=== PATIENT | female | born 1940 | race Caucasian/White ===

== ENCOUNTER 2018-04-29 15:03 | Emergency (ER) | payer MEDICARE ==
[2018-04-29] MEDS ORDERED: Amoxicillin/Potassium Clav 875 MG TAB ONE (15:24)
[2018-04-29] MEDS ORDERED: cefTRIAXone\\ROCEPHIN 1 GM VIAL ONE (15:24)
[2018-04-29] MEDS ORDERED: Adacel (T-DAP) 0.5 ML VIAL ONE (15:24)
== END 2018-04-29 15:55 | disposition home or self-care (01) ==
LOC: MADERS 15:03
DX: S61.451A Open bite of right hand, initial encounter (principal); I10 Essential (primary) hypertension; K21.9 Gastro-esophageal reflux disease without esophagitis; J44.9 Chronic obstructive pulmonary disease, unspecified; F32.9 Major depressive disorder, single episode, unspecified; E03.9 Hypothyroidism, unspecified; Z87.891 Personal history of nicotine dependence; W55.01XA Bitten by cat, initial encounter
CPT/HCPCS: 90471; 90715; 96372; J0696

== ENCOUNTER 2018-05-05 13:18 | Emergency (ER) | payer MEDICARE ==
[2018-05-05 14:33] LABS: #Basophils 0.1 thou/uL (0.0-0.2); #Eosinphils 0.6 thou/uL (0.0-0.7); #Lymphocytes 1.7 thou/uL (1.20-3.40); #Monocytes 0.9 thou/uL (0.11-0.59); #Neutrophils 9.3 thou/uL (1.40-6.50); %Eosinophils 4.6 % (0.0-10.0); %Lymphocytes 13.6 % (21.0-51.0); %Neutrophils 73.8 % (42.0-75.0); Hemoglobin 12.6 g/dL (12.0-16.0); Mean Corpuscular Hemoglobin 29.8 pg (27.0-31.0); Mean Corpuscular Volume 90.1 fL (78.0-98.0); Mean Platelet Volume 6.7 fL (7.4-10.4); Platelet Count 328 thou/uL (130-400); RBC Distribution Width 12.2 % (11.5-14.5); Red Blood Cell (RBC) Count 4.24 mill/uL (4.20-5.40); White Blood Cell (WBC) Count 12.6 thou/uL (4.8-10.8)
[2018-05-05] MEDS ORDERED: metroNIDAZOLE 500 MG/100 ML BAG ONE (14:40)
[2018-05-05] MEDS ORDERED: Sodium Chloride 0.9% 100 ML ONE (14:40)
[2018-05-05] MEDS ORDERED: cefTRIAXone\\ROCEPHIN 1 GM VIAL ONE (14:40)
--- NOTE | 2018-05-05 14:43 | RAD ---
3 VIEWS RIGHT HAND: Date: 05/05/18 HISTORY: Right hand infection from cat bite. FINDINGS: Three views of the right hand show no evidence of acute fracture or dislocation. Degenerative changes are seen in the interphalangeal joints of the fingers. Mild dorsal soft tissue swelling is seen. No osseous erosions are present. IMPRESSION: No evidence of acute osseous abnormality. POS: [facility]
[2018-05-05 14:46] LABS: Anion Gap 16 mmol/L (10-20); BUN (Urea Nitrogen) 10 mg/dL (9.8-20.1); Calc. Creatinine Clearance 0 mL/min (70-130); Calcium 9.7 mg/dL (7.8-10.44); Carbon Dioxide 27 mmol/L (23-31); Chloride 104 mmol/L (98-107); Estimated GFR-MDRD 39; Glucose 85 mg/dL (83-110); Potassium 3.8 mmol/L (3.5-5.1); Sodium 143 mmol/L (136-145)
== END 2018-05-05 19:20 | disposition short-term general hospital (02) ==
LOC: MADERS 13:18
DX: S61.051A Open bite of right thumb without damage to nail, initial encounter (principal); E03.9 Hypothyroidism, unspecified; K21.9 Gastro-esophageal reflux disease without esophagitis; I10 Essential (primary) hypertension; J44.9 Chronic obstructive pulmonary disease, unspecified; F32.9 Major depressive disorder, single episode, unspecified; Z87.891 Personal history of nicotine dependence; W55.01XA Bitten by cat, initial encounter
CPT/HCPCS: 36415; 80048; 83605; 85025; 87040; 96365; 96367; J0696; J7050

== ENCOUNTER 2018-07-17 18:16 | Emergency (ER) | payer MEDICARE, OTHER ==
[2018-07-17 19:09] LABS: Bilirubin Negative (Negative); Blood, Urine Moderate (Negative); Glucose, Urine (Dipstick) Negative (Negative); Leukocyte Large (Negative); Nitrite Negative (Negative); Protein, Urine (Dipstick) 30 mg/dL (Neg-Trace); Specific Gravity, Urine 1.025 (1.005-1.030); Urobilinogen 0.2 mg/dL (0.2-1.0); pH, Urine 5.5 (5.0-9.0)
[2018-07-17 19:10] LABS: #Basophils 0.1 thou/uL (0.0-0.2); #Eosinphils 0.2 thou/uL (0.0-0.7); #Lymphocytes 1.7 thou/uL (1.20-3.40); #Monocytes 0.6 thou/uL (0.11-0.59); #Neutrophils 5.4 thou/uL (1.40-6.50); %Eosinophils 2.2 % (0.0-10.0); %Lymphocytes 21.5 % (21.0-51.0); %Monocytes 7.4 % (0.0-10.0); %Neutrophils 67.9 % (42.0-75.0); Hemoglobin 13.7 g/dL (12.0-16.0); Mean Platelet Volume 7.4 fL (7.4-10.4); Platelet Count 218 thou/uL (130-400); RBC Distribution Width 12.7 % (11.5-14.5); Red Blood Cell (RBC) Count 4.58 mill/uL (4.20-5.40)
[2018-07-17 19:10] LABS: Clarity Cloudy (Clear)
[2018-07-17 19:17] LABS: Bacteria/HPF Rare-Few HPF (None Seen); Hyaline Casts/LPF 4-6 HYALINE CAST LPF (0-3 Hyaline)
[2018-07-17 19:28] LABS: ALT (SGPT) 233 U/L (8-55); AST (SGOT) 256 U/L (5-34); Alkaline Phosphatase 88 U/L (40-150); Anion Gap 20 mmol/L (10-20); BUN (Urea Nitrogen) 19 mg/dL (9.8-20.1); Bilirubin, Total 0.4 mg/dL (0.2-1.2); Calc. Creatinine Clearance 0 mL/min (70-130); Calcium 11.2 mg/dL (7.8-10.44); Carbon Dioxide 25 mmol/L (23-31); Chloride 103 mmol/L (98-107); Estimated GFR-MDRD 33; Globulin 3.1 g/dL (2.4-3.5); Glucose 144 mg/dL (83-110); Potassium 3.2 mmol/L (3.5-5.1); Protein, Total 8.1 g/dL (6.0-8.3); Sodium 145 mmol/L (136-145)
[2018-07-17] MEDS ORDERED: Lorazepam 2 MG/ML VIAL ONE (19:55)
[2018-07-17] MEDS ORDERED: Sodium Chloride 0.9% 1,000 ML ONE (20:07)
[2018-07-17] MEDS ORDERED: Potassium Chloride 20 MEQ TAB ONE (20:39)
--- NOTE | 2018-07-17 21:14 | CT ---
CT CHEST AND ABDOMEN AND PELVIS WITHOUT CONTRAST: HISTORY: Hypercalcemia. Pain. Altered mental status. TECHNIQUE: No IV contrast was administered due to low GFR. FINDINGS: CHEST: The lungs are clear of any infiltrates. No pulmonary nodules. There is linear atelectasis i n the lung bases. No pleural effusions. No significant mediastinal adenopathy is appreciated on this noncontrast study. There is moderate at herosclerotic change in the aorta. The aorta is normal in caliber. No significant axillary adenopat hy. ABDOMEN: The liver, spleen, pancreas, and gallbladder regions appear unremarkable on this noncontras t study. The right and left adrenal glands and right and left kidneys are normal in size. A slightl y prominent extrarenal pelvis noted on the left. There is no significant periaortic or mesenteric ad enopathy. PELVIS: There is no evidence of adenopathy, mass, or free fluid. The appendix region appears unrema rkable. There are arthritic changes of the spine. The bones appear somewhat demineralized. IMPRESSION: 1. No acute findings of the chest, abdomen, or pelvis. 2. Mildly prominent thyroid gland incidentally seen, but no discrete nodule. POS: [facility]
--- NOTE | 2018-07-17 21:16 | CT ---
CT BRAIN WITHOUT CONTRAST: HISTORY: Altered mental status. Dementia. FINDINGS: There is generalized ventricular and sulcal prominence. There is decreased attenuation of the perive ntricular white matter, consistent with some chronic white matter change. There are no signs of intr acerebral hemorrhage or extraaxial fluid collections. The mastoid air cells are clear. There is min imal mucosal change in the maxillary sinuses. IMPRESSION: No acute intracranial abnormalities. POS: [facility]
== END 2018-07-17 21:00 | disposition short-term general hospital (02) ==
LOC: MADERS 18:16
DX: I44.0 Atrioventricular block, first degree (principal); R41.82 Altered mental status, unspecified; B17.9 Acute viral hepatitis, unspecified; E83.52 Hypercalcemia; E87.6 Hypokalemia; E03.9 Hypothyroidism, unspecified; F32.9 Major depressive disorder, single episode, unspecified; F03.90 Unspecified dementia, unspecified severity, without behavioral disturbance, psychotic disturbance, mood disturbance, and anxiety; K21.9 Gastro-esophageal reflux disease without esophagitis; I10 Essential (primary) hypertension; J44.9 Chronic obstructive pulmonary disease, unspecified; Z87.891 Personal history of nicotine dependence
CPT/HCPCS: 36415; 70450; 71250; 74176; 80053; 81003; 81015; 83735; 84443; 84484; 85025; 93005; 96361; 96374; J2060; J7050

== ENCOUNTER 2018-12-08 12:35 | Emergency (ER) | payer MEDICARE ==
[2018-12-08 13:59] LABS: #Basophils 0.1 thou/uL (0.0-0.2); #Eosinphils 0.3 thou/uL (0.0-0.7); #Lymphocytes 1.5 thou/uL (1.20-3.40); #Neutrophils 6.8 thou/uL (1.40-6.50); %Basophils 1.4 % (0.0-1.0); %Lymphocytes 15.3 % (21.0-51.0); %Monocytes 10.4 % (0.0-10.0); Mean Corpuscular HGB CONC 32.8 g/dL (32.0-36.0); Mean Corpuscular Hemoglobin 29.3 pg (27.0-31.0); Mean Corpuscular Volume 89.3 fL (78.0-98.0); Mean Platelet Volume 6.8 fL (7.4-10.4); Platelet Count 228 thou/uL (130-400); RBC Distribution Width 12.2 % (11.5-14.5); Red Blood Cell (RBC) Count 4.08 mill/uL (4.20-5.40); White Blood Cell (WBC) Count 9.7 thou/uL (4.8-10.8)
[2018-12-08 14:06] LABS: Prothrombin Time 12.9 SEC (12.0-14.7)
--- NOTE | 2018-12-08 14:12 | RAD ---
EXAM: Chest 2 views: HISTORY: History of breast biopsy with lymph node removal with pain COMPARISON: 03/14/2016 FINDINGS: 3.3 cm diameter air-fluid level in the soft tissues overlying the left axilla region probably related to history of recent biopsy. Please correlate clinically. Heart size:Borderline enlarged. Lungs:No significant acute process. Prominent horizontal artifact lowers the sensitivity of this stud y. Atherosclerotic changes of the aorta. No confluent pneumonia, overt edema, pleural effusion, pneumothorax, or other significant acute proce ss. IMPRESSION: Borderline heart size. Approximately 3.3 cm diameter air-fluid level overlying the left axilla and br east region probably secondary to recent biopsy history. Correlate clinically. Atherosclerosis of the aorta. No acute intrathoracic disease.
[2018-12-08 14:14] LABS: ALT (SGPT) 16 U/L (8-55); AST (SGOT) 20 U/L (5-34); Albumin 4.1 g/dL (3.4-4.8); Alkaline Phosphatase 58 U/L (40-150); Anion Gap 16 mmol/L (10-20); BUN (Urea Nitrogen) 16 mg/dL (9.8-20.1); Bilirubin, Total 0.3 mg/dL (0.2-1.2); Calc. Creatinine Clearance 0 mL/min (70-130); Calcium 9.1 mg/dL (7.8-10.44); Carbon Dioxide 28 mmol/L (23-31); Chloride 104 mmol/L (98-107); Estimated GFR-MDRD 47; Globulin 2.6 g/dL (2.4-3.5); Glucose 79 mg/dL (83-110); Potassium 3.9 mmol/L (3.5-5.1); Protein, Total 6.7 g/dL (6.0-8.3); Sodium 144 mmol/L (136-145)
[2018-12-08] MEDS ORDERED: HYDROcodone/Acetaminophen 5/325 mg Tablet ONE (14:59)
== END 2018-12-08 16:19 | disposition short-term general hospital (02) ==
LOC: MADERS 12:35
DX: N63.0 Unspecified lump in unspecified breast (principal); L76.82 Other postprocedural complications of skin and subcutaneous tissue; Z79.899 Other long term (current) drug therapy; Z79.891 Long term (current) use of opiate analgesic
CPT/HCPCS: 71046; 80053; 85025; 85610

== ENCOUNTER 2020-08-03 01:02 | Emergency (ER) | payer MEDICARE, MEDICAID ==
[2020-08-03] MEDS ORDERED: Fentanyl 100 MCG/2 ML VIAL ONE ×3 (01:22→12:06)
[2020-08-03 02:47] LABS: #Basophils 0.1 thou/uL (0.0-0.2); #Eosinphils 0.1 thou/uL (0.0-0.7); #Lymphocytes 1.3 thou/uL (1.20-3.40); #Monocytes 0.8 thou/uL (0.11-0.59); #Neutrophils 7.9 thou/uL (1.40-6.50); %Basophils 0.6 % (0.0-1.0); %Eosinophils 1.3 % (0.0-10.0); %Lymphocytes 12.9 % (21.0-51.0); %Monocytes 7.5 % (0.0-10.0); %Neutrophils 77.7 % (42.0-75.0); Mean Corpuscular HGB CONC 32.4 g/dL (32.0-36.0); Mean Corpuscular Hemoglobin 29.8 pg (27.0-31.0); Mean Corpuscular Volume 91.9 fL (78.0-98.0); Mean Platelet Volume 6.5 fL (7.4-10.4); Platelet Count 162 thou/uL (130-400); RBC Distribution Width 12.8 % (11.5-14.5); Red Blood Cell (RBC) Count 4.04 mill/uL (4.20-5.40); White Blood Cell (WBC) Count 10.1 thou/uL (4.8-10.8)
[2020-08-03 02:51] LABS: ALT (SGPT) 16 U/L (8-55); AST (SGOT) 22 U/L (5-34); Albumin 4.2 g/dL (3.4-4.8); Alkaline Phosphatase 60 U/L (40-110); Anion Gap 17 mmol/L (10-20); BUN (Urea Nitrogen) 10 mg/dL (9.8-20.1); Bilirubin, Total 0.4 mg/dL (0.2-1.2); Calc. Creatinine Clearance 0 mL/min (70-130); Calcium 9.4 mg/dL (7.8-10.44); Carbon Dioxide 26 mmol/L (23-31); Chloride 103 mmol/L (98-107); Globulin 2.8 g/dL (2.4-3.5); Glucose 121 mg/dL (83-110); Potassium 3.4 mmol/L (3.5-5.1); Sodium 143 mmol/L (136-145)
--- NOTE | 2020-08-03 07:55 | CT ---
PRELIMINARY REPORT/[facility]/EMERGENCY AFTER HOURS PROCEDURE: EXAM: CT Cervical Spine Without Intravenous Contrast. CLINICAL HISTORY: FALL; NECK PAIN TECHNIQUE: Axial computed tomography images of the cervical spine without intravenous contrast. Sagit kim and coronal reformations performed. COMPARISON: None provided. FINDINGS: BONES: No acute fracture or focal osseous lesion. Bony alignment is anatomic. DISCS / DEGENERATIVE CHANGES: Severe disc space narrowing seen from C2-C6 with multilevel disc osteophyte complexes noted and mild to moderate central canal stenosis. Multilevel degenerative uncovertebral hypertrophic changes. SOFT TISSUES: No prevertebral soft tissue swelling. No apical pneumothorax. IMPRESSION: No acute cervical spine abnormality. Multilevel degenerative changes of the cervical spine. ELECTRONICALLY SIGNED BY: Siddharth Gill MD Aug 03, 2020 2:02:17 AM [employer] [employer] FINAL REPORT EMERGENCY AFTER HOURS CT CERVICAL SPINE PERFORMED WITHOUT CONTRAST ENHANCEMENT: HISTORY: Fall with neck pain. FINDINGS: The vertebral bodies are normal in height. Severe degenerative disc narrowing include C2-3 and C3-4. 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 Prominent degenerative facet ch anges. Bilateral foraminal narrowing which is mild to moderate at the C3-4 level. Posterior osteophyt ic change associated with a mild to moderate degree of canal stenosis at C5-6. There is also retrolis thesis present at this level. There is mild bilateral foraminal narrowing. There is no CT evidence fo r fracture. The lung apices are clear. IMPRESSION: No CT evidence of fracture of the cervical spine. Report in agreement with the preliminary report issued by [facility]. POS: [facility]
--- NOTE | 2020-08-03 07:57 | CT ---
PRELIMINARY REPORT/[facility]/EMERGENCY AFTER HOURS PROCEDURE: EXAM: CT left Hip, without IV contrast. CLINICAL HISTORY: FALL; LEFT HIP PAIN TECHNIQUE: Axial images were acquired through the left hip without IV contrast. Reformatted images we re reviewed. DLP is 861.65. CTDI is 25.12. COMPARISON: None provided. FINDINGS: BONES: Acute fracture of the left femoral neck. Femoral head is aligned within the acetabular fossa. SOFT TISSUES: The soft tissues are unremarkable. IMPRESSION: Acute fracture of the left femoral neck. ELECTRONICALLY SIGNED BY: Siddharth Gill MD Aug 03, 2020 2:09:39 AM [employer] This report is intended for review by the ordering physician only, in accordance of law. If you recei ve this report in error, please call [facility] at [phone]. FINAL REPORT EMERGENCY AFTER HOURS CT OF LEFT HIP PERFORMED WITHOUT CONTRAST ENHANCEMENT: HISTORY: Fall with left hip pain. FINDINGS: The bones are demineralized. The left SI joint is normal in appearance. There is a left femoral neck fracture. There are no signs of any significant hematoma. Incidental note is made of some sigmoid div erticulosis. IMPRESSION: Left femoral neck fracture. Report in agreement with the preliminary report issued by [facility]. POS: [facility] [place]
--- NOTE | 2020-08-03 07:59 | RAD ---
EXAM: 3 views of the left shoulder HISTORY: Shoulder pain after fall COMPARISON: None FINDINGS: There is a fracture of the distal aspect of the clavicle. No AC separation is seen. No othe r fractures are present. No degenerative changes are present. Mild soft tissue swelling is seen. The visualized thorax is unremarkable. IMPRESSION: Left distal clavicle fracture.
--- NOTE | 2020-08-03 08:06 | RAD ---
EXAM: Single view of the chest HISTORY: Preoperative radiograph COMPARISON: 12/08/2018 FINDINGS: Single view of the chest shows a normal sized cardiomediastinal silhouette. Atheroscleroti c calcifications are seen in the aorta. There is no evidence of consolidation, mass, or pleural effusion. There is a left distal clavicle fracture. IMPRESSION: 1. No evidence of acute cardiopulmonary disease 2. Left distal clavicle fracture
[2020-08-03] MEDS ORDERED: Phenylephrine 10 MG/ML VIAL ONE ×2 (12:38→12:46)
== END 2020-08-03 03:18 | disposition short-term general hospital (02) ==
LOC: MADERS 01:02
DX: S72.002A Fracture of unspecified part of neck of left femur, initial encounter for closed fracture (principal); S42.032A Displaced fracture of lateral end of left clavicle, initial encounter for closed fracture; S16.1XXA Strain of muscle, fascia and tendon at neck level, initial encounter; E03.9 Hypothyroidism, unspecified; I12.9 Hypertensive chronic kidney disease with stage 1 through stage 4 chronic kidney disease, or unspecified chronic kidney disease; N18.9 Chronic kidney disease, unspecified; Z85.3 Personal history of malignant neoplasm of breast; Z87.891 Personal history of nicotine dependence; Z79.899 Other long term (current) drug therapy; W19.XXXA Unspecified fall, initial encounter
CPT/HCPCS: 36415; 71045; 72125; 80053; 84484; 85025; 93005; 94760; 96374; 96376; J2370; J3010

== ENCOUNTER 2020-08-15 16:18 | Outpatient (CLI) | payer MEDICARE, MEDICAID ==
[2020-08-16 07:25] LABS: Hemoglobin 11.7 g/dL (12.0-16.0); Mean Corpuscular HGB CONC 30.8 g/dL (32.0-36.0); Mean Corpuscular Hemoglobin 29.1 pg (27.0-31.0); Mean Corpuscular Volume 94.4 fL (78.0-98.0); Mean Platelet Volume 6.2 fL (7.4-10.4); Platelet Count 339 thou/uL (130-400); Red Blood Cell (RBC) Count 4.03 mill/uL (4.20-5.40); White Blood Cell (WBC) Count 10.3 thou/uL (4.8-10.8)
== END 2020-08-15 16:19 | disposition home or self-care (01) ==
LOC: MADLAB 16:18
DX: E86.0 Dehydration (principal)
CPT/HCPCS: 85027

== ENCOUNTER 2024-08-14 13:01 | Emergency (ER) | payer MEDICARE | END 2024-08-14 13:42 | disposition home or self-care (01) | LOC: MADERS 13:01 | DX: J01.40 Acute pansinusitis, unspecified (principal); E03.9 Hypothyroidism, unspecified; I12.9 Hypertensive chronic kidney disease with stage 1 through stage 4 chronic kidney disease, or unspecified chronic kidney disease; N18.9 Chronic kidney disease, unspecified; Z87.891 Personal history of nicotine dependence; Z79.890 Hormone replacement therapy; Z79.899 Other long term (current) drug therapy | CPT/HCPCS: 99283 ==